=== PATIENT | male | born 1945 | race Caucasian/White ===

== ENCOUNTER → 2016-10-03 | Outpatient (CLI) | payer OTHER | LOC: CIMAGING 08:22 | PROVIDERS: ATTEND Internal Medicine | DX: M19.071 Primary osteoarthritis, right ankle and foot (principal); M77.31 Calcaneal spur, right foot | CPT/HCPCS: 73630-PO ==

== ENCOUNTER → 2017-01-26 | Outpatient (CLI) | payer OTHER | LOC: FCPNEURO 20:00 | PROVIDERS: ATTEND Psychiatry & Neurology Sleep Medicine | DX: G47.33 Obstructive sleep apnea (adult) (pediatric) (principal); G47.37 Central sleep apnea in conditions classified elsewhere; G25.81 Restless legs syndrome ==

== ENCOUNTER 2017-07-10 09:30 | Emergency (ER) | payer OTHER ==
[2017-07-10 09:43] VITALS: BP 142/88; PULSE 88; RESP 20; TEMP 98; O2SAT 96
--- NOTE | 2017-07-10 09:52 | EDPHY ---
H & P Time Seen by Provider: 07/10/17 09:38 HPI/ROS: CHIEF COMPLAINT: Thumb laceration HISTORY OF PRESENT ILLNESS: 71-year-old gentleman lacerated the tip of his right thumb with garden jordan 24 hr ago. Patient has a oval flap-like laceration. Bleeding has been able to be controlled with pressure. Minimal pain. Patient believes his tetanus is up-to-date. REVIEW OF SYSTEMS: Aside from elements discussed in the HPI, a comprehensive 10-point review of systems was reviewed and is negative. PAST MEDICAL HISTORY: Pre diabetes. SOCIAL HISTORY: Retired. Nonsmoker. GENERAL APPEARANCE: Pleasant, alert, oriented. FOCUSED EXAM OF right hand: Normal pulses at the radius and ulna. Right thumb : Curvilinear flap-like laceration over the distal pad. Does not involve the nail. Some dusky appearance to the flap. Bleeding controlled. Normal two- point sensation. Neurovascular exam: Good capillary refill, normal motor exam, normal neurologic exam. Smoking Status: Former smoker Constitutional: Initial Vital Signs Temperature (C) 36.6 C 07/10/17 09:41 Heart Rate 88 07/10/17 09:41 Respiratory Rate 20 07/10/17 09:41 Blood Pressure 142/88 H 07/10/17 09:41 O2 Sat (%) 96 07/10/17 09:41 O2 Delivery Mode Room Air Allergies/Adverse Reactions: codeine Allergy (Verified 03/25/16 11:17) Penicillins Allergy (Verified 03/25/16 11:17) Home Medications: Medication Instructions Recorded Aspirin 81mg (*) 81 mg PO DAILY 03/25/16 CeleXA 20 MG 20 mg PO DAILY 03/25/16 Fish Oil 1,000 mg Capsule 1,000 mg PO EVERY OTHER DAY 03/25/16 Lisinopril/Hctz 20/12.5MG 1 PO DAILY 03/25/16 Metformin HCl ER 500 mg PO DAILY 03/25/16 Multivitamin 1 PO DAILY 03/25/16 Pravastatin Sodium 20 mg PO DAILY 03/25/16 MDM/Departure - [facility] ED Course/Re-evaluation: Patient I discussed various options. We will not suture as it has been prolonged period of time. Bleeding is well controlled. Laceration was cleaned and the flap was elevated. Following this, Steri-Strips were used to approximate the edge. Tube gauze dressing was applied. Differential Diagnosis: Differential diagnosis for the patient's injury was considered including but not limited to contusion, abrasion, laceration, fracture, open fracture, or dislocation. - Depart Disposition: Home, Routine, Self-Care Clinical Impression: Laceration Condition: Good Instructions: Finger Laceration (ED) Additional Instructions: Keep wound clean and dry. Keep the tube gauze dressing in place for the next 24 hr. After that, you may use a Band-Aid to cover the laceration. You may clean along the the laceration (between the Steri-Strips) with mixture of hydrogen peroxide and water. Apply a thin layer of antibiotic cream. No soaking wound in water. Showers are ok. Watch for signs of infection. Use Tylenol or ibuprofen as needed for discomfort. Return to emergency department if any concerns regarding infection. Referrals: Armani Rankin MD [Primary Care Provider] - As per Instructions
== END 2017-07-10 10:10 | disposition home or self-care (01) ==
LOC: CED 09:30
DX: S61.011A Laceration without foreign body of right thumb without damage to nail, initial encounter (principal); Z79.82 Long term (current) use of aspirin; Z79.84 Long term (current) use of oral hypoglycemic drugs; W31.1XXA Contact with metalworking machines, initial encounter